=== PATIENT | female | born 1940 | race African-American/Black ===

== ENCOUNTER 2018-03-04 15:10 | Outpatient (CLI) | payer MEDICARE ==
--- NOTE | 2018-03-04 17:31 | ULT ---
ULTRASOUND DOPPLER DUPLEX CAROTID: 03/04/2018 HISTORY: R42, dizziness. R09.89, bilateral carotid bruits. TECHNIQUE: Orozco-scale, color-flow, and spectral analysis of the major arteries of the neck. FINDINGS: Enlarged thyroid gland with heterogeneous echogenicity and thyroid nodules incidentally noted, incomp letely evaluated. This was demonstrated on previous thyroid ultrasound of 03/11/2007. Mild to moderate plaque at the bilateral proximal internal carotid arteries, origins of bilateral ext ernal carotid arteries, and carotid bulbs extending down into upper common carotids. Highest peak systolic velocities in the internal carotid arteries are 50 cm/s on the right and 115 cm /s on the left. ICA/CCA RATIOS: 0.6 on the right and 1.3 on the left. Vertebral artery flow is antegrade bilaterally. IMPRESSION: 1. Mild to moderate atherosclerosis of bilateral proximal internal carotid arteries. 2. No evidence of hemodynamically significant stenosis. POS: [facility]
== END 2018-03-04 15:11 | disposition home or self-care (01) ==
LOC: SCSULT 15:10
PROVIDERS: ATTEND Internal Medicine Geriatric Medicine
DX: R09.89 Other specified symptoms and signs involving the circulatory and respiratory systems (principal); I10 Essential (primary) hypertension; E11.69 Type 2 diabetes mellitus with other specified complication; R42 Dizziness and giddiness; R51 Headache; I65.23 Occlusion and stenosis of bilateral carotid arteries
CPT/HCPCS: 93880

== ENCOUNTER 2018-03-12 12:26 | Outpatient (CLI) | payer MEDICARE | END 2018-03-12 12:27 | disposition home or self-care (01) | LOC: BICULT 12:26 | PROVIDERS: ATTEND Internal Medicine Geriatric Medicine | DX: E04.9 Nontoxic goiter, unspecified (principal); E04.2 Nontoxic multinodular goiter | CPT/HCPCS: 76536 ==

== ENCOUNTER 2018-03-12 13:38 | Outpatient (CLI) | payer MEDICARE | END 2018-03-12 13:39 | disposition home or self-care (01) | LOC: BICMAMMO 13:38 | PROVIDERS: ATTEND Internal Medicine Geriatric Medicine | DX: Z12.31 Encounter for screening mammogram for malignant neoplasm of breast (principal); Z80.3 Family history of malignant neoplasm of breast | CPT/HCPCS: 77063; 77067 ==

== ENCOUNTER 2018-04-11 13:03 | Outpatient (CLI) | payer MEDICARE | END 2018-04-11 13:04 | disposition home or self-care (01) | LOC: BICCT 13:03 | PROVIDERS: ATTEND Internal Medicine Geriatric Medicine | DX: M79.89 Other specified soft tissue disorders (principal); R29.898 Other symptoms and signs involving the musculoskeletal system | CPT/HCPCS: 70450 ==

== ENCOUNTER 2018-12-04 17:07 | Emergency (ER) | payer MEDICARE ==
[2018-12-04 18:22] LABS: #Lymphocytes 1.3 thou/uL (1.20-3.40); #Monocytes 0.7 thou/uL (0.11-0.59); #Neutrophils 8.5 thou/uL (1.40-6.50); %Basophils 0.3 % (0.0-1.0); %Eosinophils 0.2 % (0.0-10.0); %Lymphocytes 12.7 % (21.0-51.0); %Monocytes 6.4 % (0.0-10.0); %Neutrophils 80.4 % (42.0-75.0); Hemoglobin 14.3 g/dL (12.0-16.0); Mean Corpuscular HGB CONC 32.8 g/dL (32.0-36.0); Mean Corpuscular Hemoglobin 28.9 pg (27.0-31.0); Mean Corpuscular Volume 88.1 fL (78.0-98.0); Mean Platelet Volume 8.3 fL (7.4-10.4); Platelet Count 372 thou/uL (130-400); RBC Distribution Width 12.2 % (11.5-14.5); Red Blood Cell (RBC) Count 4.95 mill/uL (4.20-5.40); White Blood Cell (WBC) Count 10.6 thou/uL (4.8-10.8)
--- NOTE | 2018-12-04 18:27 | RAD ---
THORACIC SPINE RADIOGRAPH SERIES THREE VIEWS: 12/04/18 INDICATION: Posttraumatic pain. FINDINGS: Mild kyphosis. No compression fracture is seen or subluxation. Multilevel degenerative change is pres ent. There is incidental note of atherosclerosis. IMPRESSION: No acute compression fracture or subluxation or the thoracic spine. POS: [facility]
--- NOTE | 2018-12-04 18:33 | CT ---
HEAD CT NONCONTRAST 12/04/18 COMPARISON: 04/11/18. INDICATION: Posttraumatic pain. FINDINGS: Prominence of ventricular system is present, stable. No intracranial hemorrhage, mass effect or midli ne shift. Mild right mastoid opacification is present. IMPRESSION: No acute intracranial hemorrhage or mass effect. Stable mild prominence of ventricular system. Mild chronic microvascular ischemic disease. POS: [facility]
[2018-12-04 18:49] LABS: ALT (SGPT) 11 U/L (8-55); AST (SGOT) 22 U/L (5-34); Albumin 4.4 g/dL (3.4-4.8); Alkaline Phosphatase 108 U/L (40-150); Anion Gap 16 mmol/L (10-20); BUN (Urea Nitrogen) 14 mg/dL (9.8-20.1); Bilirubin, Total 0.4 mg/dL (0.2-1.2); CK (CPK) 671 U/L (29-168); Calc. Creatinine Clearance 0 mL/min (70-130); Carbon Dioxide 21 mmol/L (23-31); Chloride 108 mmol/L (98-107); Estimated GFR-MDRD Greater than 90; Globulin 2.6 g/dL (2.4-3.5); Glucose 112 mg/dL (83-110); Sodium 141 mmol/L (136-145)
--- NOTE | 2018-12-04 19:30 | RAD ---
FRONTAL VIEW CHEST: 12/04/18 INDICATION: Posttraumatic chest pain. FINDINGS: There is interstitial prominence of the lungs bilaterally. Elevation of left hemidiaphragm is present with added density obscuring the left lower lung zone. The cardiac silhouette is accentuated by port able technique. There is prominence of the pulmonary vasculature bilaterally. Osseous degenerative ch anges are seen. IMPRESSION: Elevation of the left hemidiaphragm obscuring the left lower chest. Prominent perihilar vasculature may represent edema. Correlate clinically. POS: [facility]
[2018-12-04 19:38] LABS: Bilirubin Negative (Negative); Blood, Urine Negative (Negative); Clarity CLEAR (Clear); Glucose, Urine (Dipstick) Negative (Negative); Leukocyte Moderate (Negative); Nitrite Negative (Negative); Protein, Urine (Dipstick) Negative (Neg-Trace); Specific Gravity, Urine 1.018 (1.002-1.036); Urobilinogen 0.2 mg/dL (0.2-1.0)
[2018-12-04 19:40] LABS: Bacteria/HPF None Seen HPF (None Seen); Hyaline Casts/LPF 0-3 HYALINE CAST LPF (0-3 Hyaline); RBC/HPF 0-3 HPF (0-3); Squamous Epithelial 0-3 HPF (0-3); WBC/HPF 0-3 HPF (0-3)
== END 2018-12-04 20:09 | disposition home or self-care (01) ==
LOC: ERS 17:07
DX: M54.5 Low back pain (principal); I10 Essential (primary) hypertension; E11.9 Type 2 diabetes mellitus without complications; E03.9 Hypothyroidism, unspecified; Z79.82 Long term (current) use of aspirin; Z79.84 Long term (current) use of oral hypoglycemic drugs; W17.89XA Other fall from one level to another, initial encounter
CPT/HCPCS: 36415; 70450; 71045; 72072; 80053; 81003; 81015; 82550; 84484; 85025; 93005; 96360

== ENCOUNTER 2023-08-10 20:16 | Emergency (ER) | payer OTHER, MEDICARE ==
[2023-08-10] MEDS ORDERED: Acetaminophen 500 MG TAB ONE (22:09)
== END 2023-08-10 23:00 ==
LOC: ERS 20:16
DX: Z04.3 Encounter for examination and observation following other accident (principal); I10 Essential (primary) hypertension; E11.9 Type 2 diabetes mellitus without complications; E78.00 Pure hypercholesterolemia, unspecified; E03.9 Hypothyroidism, unspecified; Z79.82 Long term (current) use of aspirin; Z79.84 Long term (current) use of oral hypoglycemic drugs
CPT/HCPCS: 70450; 72170

== ENCOUNTER 2023-12-03 04:24 | Emergency (ER) | payer MEDICARE ==
[2023-12-03 04:58] LABS: #Eosinphils 0.3 thou/uL (0.0-0.7); #Monocytes 0.6 thou/uL (0.11-0.59); #Neutrophils 4.6 thou/uL (1.40-6.50); %Basophils 0.4 % (0.0-1.0); %Eosinophils 3.5 % (0.0-10.0); %Lymphocytes 27.7 % (21.0-51.0); %Monocytes 7.5 % (0.0-10.0); %Neutrophils 60.6 % (42.0-75.0); Hemoglobin 12.6 g/dL (12.0-16.0); Mean Corpuscular HGB CONC 33.2 g/dL (32.0-36.0); Mean Corpuscular Hemoglobin 27.8 pg (27.0-31.0); Mean Corpuscular Volume 83.9 fl (78.0-98.0); Mean Platelet Volume 10.5 fL (7.4-10.4); Platelet Count 434 10x3/uL (130-400); Red Blood Cell (RBC) Count 4.53 mill/uL (4.20-5.40); White Blood Cell (WBC) Count 7.6 10x3/uL (4.8-10.8)
[2023-12-03] MEDS ORDERED: methylPREDNISolone Sod Succ/PF 125 MG/2 ML VIAL ONE (05:11)
[2023-12-03 05:12] LABS: Prothrombin Time 13.4 sec (12.0-14.7)
[2023-12-03 05:13] LABS: PTT 32.7 sec (22.9-36.1)
[2023-12-03] MEDS ORDERED: Ipratropium/Albuterol 3 ML NEB ONE (05:17)
[2023-12-03 05:23] LABS: ALT (SGPT) 9 U/L (8-55); AST (SGOT) 10 U/L (5-34); Albumin 3.9 g/dL (3.4-4.8); Alkaline Phosphatase 122 U/L (40-110); Anion Gap 13 mmol/L (10-20); BUN (Urea Nitrogen) 11 mg/dL (9.8-20.1); Bilirubin, Total 0.4 mg/dL (0.2-1.2); Calc. Creatinine Clearance 0 mL/min (70-130); Calcium 9.3 mg/dL (7.8-10.44); Carbon Dioxide 23 mmol/L (23-31); Chloride 108 mmol/L (98-107); Estimated GFR 84; Globulin 3.3 g/dL (2.4-3.5); Glucose 143 mg/dL (83-110); Lipase 15 U/L (8-78); Protein, Total 7.2 g/dL (5.8-8.1); Sodium 140 mmol/L (136-145)
[2023-12-03 05:26] LABS: Troponin I Less than 0.010 ng/mL (< 0.028)
[2023-12-03 06:09] LABS: SARS-CoV-2 NAA Rapid Test Not Detected (NotDetected)
[2023-12-03 07:38] LABS: Bacteria/HPF 3+ HPF (None Seen); Bilirubin Negative (Negative); Blood, Urine Negative (Negative); CAUTI Indications for Culture Alt mental st,lethar; Clarity Clear (Clear); Glucose, Urine (Dipstick) Normal (Negative); Ketone, Urine Negative (Negative); Leukocyte 250 Leu/uL (Negative); Nitrite Negative (Negative); Protein, Urine (Dipstick) Negative (Neg-Trace); RBC/HPF 0-3 HPF (0-3); Specific Gravity, Urine 1.012 (1.002-1.036); Squamous Epithelial 0-3 HPF (0-3); Urobilinogen Normal mg/dL (Less than 2)
[2023-12-03 07:43] LABS: Urine Culture Reflex Yes Yes
[2023-12-03] MEDS ORDERED: Sodium Chloride 0.9% 100 ML ONE (08:01)
[2023-12-03] MEDS ORDERED: cefTRIAXone (ROCEPHIN) 1 GM VIAL ONE (08:01)
== END 2023-12-03 09:18 | disposition home or self-care (01) ==
LOC: ERS 04:24
DX: J44.9 Chronic obstructive pulmonary disease, unspecified (principal); N39.0 Urinary tract infection, site not specified; E11.9 Type 2 diabetes mellitus without complications; I10 Essential (primary) hypertension
CPT/HCPCS: 0240U; 71045; 80053; 81001; 83605; 83690; 83735; 83880; 84484; 85025; 85610; 85730; 87086; 93005; 94640; 96365; 96375; J0696; J2930; J3490; J7620